=== PATIENT | female | born 1970 | race Caucasian/White ===

== ENCOUNTER 2017-03-28 12:37 | Outpatient (CLI) | payer OTHER | END 2017-03-28 12:40 | LOC: LAB 12:37 | PROVIDERS: ATTEND Family Medicine | DX: E03.9 Hypothyroidism, unspecified (principal) | CPT/HCPCS: 36415; 84443 ==

== ENCOUNTER 2017-04-15 08:17 | Outpatient (CLI) | payer OTHER | END 2017-04-15 08:18 | LOC: OUT 08:17 | PROVIDERS: ATTEND General Practice | DX: Z30.433 Encounter for removal and reinsertion of intrauterine contraceptive device (principal) | CPT/HCPCS: 99214 ==

== ENCOUNTER 2017-04-29 08:16 | Outpatient (CLI) | payer OTHER | END 2017-04-29 08:17 | LOC: OUT 08:16 | PROVIDERS: ATTEND General Practice | DX: Z30.431 Encounter for routine checking of intrauterine contraceptive device (principal) | CPT/HCPCS: 99213 ==

== ENCOUNTER 2018-04-20 10:07 | Outpatient (CLI) | payer OTHER | END 2018-04-20 10:10 | LOC: LAB 10:07 | PROVIDERS: ATTEND Family Medicine | DX: Z13.29 Encounter for screening for other suspected endocrine disorder (principal) | CPT/HCPCS: 36415; 84443 ==

== ENCOUNTER 2019-09-21 10:16 | Outpatient (CLI) | payer OTHER | END 2019-09-21 10:21 | LOC: LAB 10:16 | PROVIDERS: ATTEND Family Medicine | DX: Z13.29 Encounter for screening for other suspected endocrine disorder (principal) | CPT/HCPCS: 36415; 84443 ==